=== PATIENT | male | born 2005 | race Caucasian/White ===

== ENCOUNTER 2024-07-27 16:39 | Emergency (ER) | payer OTHER, SELFPAY ==
[2024-07-27 16:59] VITALS: BP 123/76; PULSE 125; RESP 20; TEMP 38.3; O2SAT 96; BMI 34.3
--- NOTE | 2024-07-27 17:32 | PD.EDDENTL ---
ED Dental RME/HPI General Chief complaint: Dental/Oral/Throat Stated complaint: sore throat x 1 week Time Seen by Provider: 07/27/24 16:56 Source: patient Arrival date/time: 07/27/24 16:39 This is a 19-year-old male who presents to the emergency department with complaints of throat pain x 1 week. Patient does report he had labs done for mononucleosis which was negative. However he did test positive for influenza A n B, 2 days ago and was placed on Tamiflu. He did have a strep test test done which was negative on the outpatient basis was waiting a culture. Patient reports he developed fever and is currently on no antibiotics. No trouble breathing, no hypoxia no chest pain no lethargy. Limitations: no limitations Review of Systems Review of Systems Systems Reviewed: All systems reviewed, normal except as documented Narrative Review of Systems: Gen: +fever, no chills, no weight loss EYES: No discharge, no visual changes, no pain HEENT: No ear pain, no congestion, +sore throat,, painful swallowing PULM: No shortness of breath, no cough, no congestion CV: No chest pain, no dyspnea on exertion, no palpitations GI: No nausea, no vomiting, no diarrhea, no pain, no constipation : No frequency, no urgency,? no dysuria Musc/skel: No joint pain, no back pain Skin: No rash? Psyc: No hallucinations, no depression Heme/Lymph: No easy bleeding or bruising tendencies Neuro: No weakness, no headache ED Exam General Limitations: Present no limitations General appearance: Present alert and in no apparent distress Head Head exam: Present atraumatic Eye Eye exam: Present normal appearance, PERRL and EOMI ENT ENT exam: Present mucous membranes moist and TM's normal bilaterally Expanded ENT Exam Nose exam: Present sinus tenderness Nasal speculum exam: Bilateral: normal Mouth exam: Present tongue normal; Absent drooling, trismus, lip swelling, tongue elevation or tongue swelling Teeth exam: Present normal inspection Throat exam: Present tonsillar erythema, tonsillomegaly and tonsillar exudate; Absent R peritonsillar mass, L peritonsillar mass or muffled voice Neck Neck exam: Present normal inspection, full ROM and trachea midline Chest Chest inspection: Present normal inspection and symmetric chest wall rise Respiratory Respiratory exam: Present normal lung sounds bilaterally Cardiovascular Cardiovascular exam: Present regular rate, normal rhythm and normal heart sounds Abdominal Exam Abdominal exam: Present soft and normal bowel sounds Extremities Exam Extremities exam: Present normal inspection and full ROM Back Exam Back exam: Present normal inspection and full ROM Neurological Exam Neurological exam: Present alert, oriented X3 and CN II-XII intact Psychiatric Psychiatric exam: Present normal affect and normal mood Skin Skin exam: Present warm, dry, intact and normal color Course Quality Measures none Orders Category Date Time Status Strep A Rapid Stat Lab 07/27/24 17:25 Completed Dexamethasone Inj [Decadron Inj] Med 07/27/24 17:21 Discontinued 10 mg PO X1 ONE Ibuprofen Tab [Motrin Tab] Med 07/27/24 17:21 Discontinued 800 mg PO X1 ONE PEN G NICHOLAS (Bicillin LA) [Bicillin La Inj] Med 07/27/24 17:22 Discontinued 1.2 mmu IM X1 ONE Vital Signs Vital signs: Vital Signs Temperature 101.0 F H 07/27/24 16:59 Pulse Rate 125 H 07/27/24 16:59 Respiratory Rate 20 07/27/24 16:59 Blood Pressure 123/76 07/27/24 16:59 Pulse Oximetry (%) 96 07/27/24 16:59 Oxygen Delivery Method Room Air 07/27/24 16:59 Dental / Oral MDM Narrative MDM Narrative:: Based on the patient's symptom pt made aware will treat as presumptive streptococcal pharyngitis based on sypmtoms. Centor criteria 4, will start abx empirically.Patient education provided, and that the antibiotics are prescribed to avoid serious complications, including rheumatic fever. Advised to take OTC NSAID prn pain or fevers. Fluids, soups, tea, honey advised. Use humidifier at nights. Replace toothbrush. Follow up if symptoms persist / worsen over next 2-3 days. ER precautions provided. Pt verbalized understanding. Patient data External records reviewed:: [facility] previous records Clinical information provided by:: patient Social determinants that could affect healthcare access:: none Patient has the following chronic illnesses:: no How is presenting disease/condition affected by chronic disease/condition?: no chronic disease Evaluation data The following diagnostics were reviewed and interpreted by me:: lab results Lab and/or radiology exams considered but not ordered:: no Interpretation Summary: Negative strep, culture pending Medications / Prescriptions Medications or Prescriptions considered but not ordered:: no Medication administrations:: Medication Administration History Discontinued Medications Dexamethasone Sodium Phosphate (Dexamethasone Sod Phos Inj 10 Mg/Ml Vial) 10 mg PO X1 ONE Stop: 07/27/24 17:22 Last Admin: 07/27/24 18:13 Dose: 10 mg Documented By: Ibuprofen (Ibuprofen Tab 400 Mg Tablet) 800 mg PO X1 ONE Stop: 07/27/24 17:22 Last Admin: 07/27/24 18:13 Dose: 800 mg Documented By: Penicillin G Benzathine (Pen G Nicholas (Bicillin La) 1.2 Mmu/2 Ml Syrg) 1.2 mmu IM X1 ONE Stop: 07/27/24 17:23 Last Admin: 07/27/24 18:13 Dose: 1.2 mmu Documented By: meds administered Consultations Consultation(s) initiated? (list below): No Diagnosis Dental Differential Diagnosis: gingival abscess, dental caries and other (Streph pharyngitis) Most likely diagnosis given after review of the tests above:: <Pharyngitis, and Influenza Admission Indicated Admission indicated?: not indicated Admission Request Was there a request for admission?: No Disposition Plan Disposition Plan: Discharge Discharge Attestation Discharge Attestation: The patient and all family members were given an opportunity to ask questions and understood the discharge instructions. Discharge instructions specifically effects, indications for sooner follow up or return to the emergency department, and the expected course of current diagnosis. Patient condition: Stable Discharge Plan Plan Patient Disposition: HOME (Self Care) Patient condition on transfer: Stable Prescriptions/Referrals Referrals: No Primary/Family,Physician [Primary Care Provider] - In 1 week Problem List Clinical Impression: Pharyngitis Patient/Caregiver Discharge Instructions Discharge Activity: as per physical therapy Education Materials: ED Pharyngitis, Report Pending Additional Instructions: - 1 shot of penicillin was given to you today for treatment of strep pharyngitis -Continue to alternate between Tylenol and or ibuprofen. Continue your influenza medication Drink plenty of fluids. Stay hydrated. You should start feeling much improved within 2 days of the antibiotic shot. If you have worsening symptoms worsening fever and worsening throat swelling please return to the emergency department as discussed for further evaluation. Print Language: Hebrew Stand Alone Forms: Lindsay Award Info., Patient Portal Info Letter ROBE/RENITA Supervising Physician PA/RENITA Supervising Physician: Dr Noble
[2024-07-27] MEDS: PEN G BENZ (Bicillin LA) 1.2 MMU/2 ML SYRG IM (18:13)
[2024-07-27] MEDS: DEXAMETHASONE SOD PHOS INJ 10 MG/ML VIAL PO (18:13)
[2024-07-27] MEDS: IBUPROFEN TAB 400 MG TABLET 800 MG PO (18:13)
[2024-07-27 20:00] LABS: Strep A Rapid Negative (Negative)
== END 2024-07-27 18:24 | disposition home or self-care (01) ==
PROVIDERS: Nurse Practitioner Primary Care; Emergency Provider Emergency Medicine
DX: J02.9 Acute pharyngitis, unspecified (principal)
CPT/HCPCS: 87651; 96372; 99283; J0561; J1100; A9270